=== PATIENT | female | born 1950 | race Caucasian/White ===

== ENCOUNTER 2018-04-02 09:37 | Outpatient (CLI) | payer MEDICARE, BC, SELFPAY ==
[2018-04-02 11:36] LABS: ALT 22 U/L (12-78); AST 13 U/L (15-37); Albumin 3.8 g/dL (3.4-5.0); Alkaline Phosphatase 81 U/L (46-116); Anion Gap 6.7 mmol/L (3-11); BUN 15 mg/dL (7-18); Bilirubin, Total 1.7 mg/dL (0.2-1.0); CO2 31.3 mmol/L (21.0-32.0); CREATININE 0.87 mg/dL (0.55-1.02); Calcium 9.1 mg/dL (8.5-10.1); Chloride 104 mmol/L (98-107); Glucose 85 mg/dL (70-100); Potassium 4.4 mmol/L (3.5-5.1); Sodium 142 mmol/L (136-145)
== END 2018-04-02 09:57 ==
PROVIDERS: PCP Family Medicine; Visit Provider Family Medicine
DX: E03.9 Hypothyroidism, unspecified (principal); E27.1 Primary adrenocortical insufficiency; M81.8 Other osteoporosis without current pathological fracture; T50.905A Adverse effect of unspecified drugs, medicaments and biological substances, initial encounter
CPT/HCPCS: 36415; 80053; 84443

== ENCOUNTER 2019-01-21 20:27 | Emergency (ER) | payer MEDICARE, BC, SELFPAY ==
--- NOTE | 2019-01-21 20:29 | ED.GENADUL_ITS ---
Discharge Plan Disposition Patient Disposition: HOME Condition: Good Discharge Details Chief Complaint: EyeProblem Clinical Impression: Conjunctival hemorrhage Primary Care Provider: Noa Avelar ED Provider: Jovan Ocampo Home Meds and New Rx's Prescriptions: No Action Solu-Cortef (PF) 100 mg/2 mL recon soln 100 mg IM PRN Qty: 1 RF: 4 fludrocortisone 0.1 mg tablet 0.1 mg PO DAILY Qty: 90 RF: 12 hydrocortisone 5 mg tablet 5 mg PO as directed RF: 0 TRAVATAN 0.004% EYE DROP 5 ML drops 1 drp Ophthalmic DAILY RF: 0 timolol maleate 15 ML drops 1 drp OU BID RF: 0 levothyroxine 88 mcg tablet 88 mcg PO DAILY Qty: 90 RF: 12 triamcinolone acetonide 0.1 % ointment 1 applic Topical BID PRNQty: 80 RF: 3 Discharge Instructions Additional Instructions: You have a sub-conjunctival hemorrhage. At this time there is no evidence of blood behind your eye, or a perforation of the globe of your eye. Please use erythromycin ointment for comfort. Please follow-up with your eye doctor tomorrow for reassessment. If you notice any worsening of your symptoms, or any new symptoms such as vision changes, vomiting, diarrhea, fever, chills, shortness of breath, chest pain, numbness, weakness, or fainting , please return immediately to the emergency department for reevaluation. Please follow up with your primary care provider as soon as possible for reassessment and reevaluation. As always, it was a pleasure participating in your medical care today. Referrals: Ramon Unger [OSTEOPATHIC DOCTOR] - Medical Decision Making This is a pleasant 68-year-old female with past medical history of Wolfgang's disease and normal pressure glaucoma who presents today for evaluation of trauma/abrasion to her left lateral eye. 20 minutes prior to arrival she caught the edge of her left eye on he bent edge of the newspaper. Did cause some mild bleeding. She came to the ER for further assessment. Bleeding resolved by the time she arrived. Notable conjunctival hemorrhage surrounding the eye. No evidence of hyphema. Normal vision, and ocular range of motion. Negative Ascencion sign. Notable corneal abrasion at the 3 o'clock position. No evidence of foreign body when lids were fully everted. Exam demonstrates normal visual acuity bilaterally. Signs and symptoms are consistent with subconjunctival hemorrhage and conjunctival abrasion. We will give her erythromycin ointment for ease of pain. Recommend close follow-up with the patient's chiller operator Dr Unger tomorrow. Discussed red flags which to return. Tetanus status is up-to-date. I have extensively reviewed the treatment plan and discharge instructions with the patient and their family. I have addressed all patient concerns at this time. The patient and family was made aware of what symptoms to monitor for that would warrant a return to the emergency department. Discussed the plan with the patient and family, they demonstrate verbal understanding and agreement with our assessment and plan at this time. HPI General Date/Time Provider Initiated Documentation: 01/21/19 20:29 . HPI Narrative: This is a 68-year-old female with a past medical history of [place]'s disease who presents today for evaluation of contusion to her left eye. Patient states that 20 to 30 minutes prior to arrival she hit her left eye on the lateral aspect with a folded newspaper. It did cause some mild bleeding. The bleeding is since stopped, but she does have sensation of irritation and notable redness all on the conjunctiva of the eye. She denies any significant vision changes. She denies any blood thinner use. She does have a history of normal pressure glaucoma and takes timolol and Travatan for her eye. She denies any other complaints. She denies any head pain, eyeball pain, neck pain. No other modifying factors peer Related Data Home Medications Medication Instructions Recorded Confirmed Travatan 0.004% Eye Drop 1 drp OPHTHALMIC DAILY drp 01/12/13 01/21/19 timolol maleate 1 drp OU BID script 07/14/13 01/21/19 fludrocortisone 0.1 mg tablet 0.1 mg PO DAILY #90 tab-cap 04/01/18 01/21/19 hydrocortisone sod succ (PF) 100 100 mg IM PRN #1 vial 04/01/18 01/21/19 mg/2 mL solution for injection levothyroxine 88 mcg tablet 88 mcg PO DAILY #90 tab-cap 04/22/18 01/21/19 hydrocortisone 5 mg tablet 5 mg PO as directed tab-cap 11/10/18 01/21/19 triamcinolone acetonide 0.1 % 1 applic TOPICAL BID PRN #80 gm 11/10/18 11/10/18 topical ointment Previous Rx's Medication Instructions Recorded fludrocortisone 0.1 mg tablet 0.1 mg PO DAILY #90 tab-cap 04/01/18 hydrocortisone sod succ (PF) 100 100 mg IM PRN #1 vial 04/01/18 mg/2 mL solution for injection levothyroxine 88 mcg tablet 88 mcg PO DAILY #90 tab-cap 04/22/18 Allergies Allergy/AdvReac Type Severity Reaction Status Date / Time methimazole Allergy Intermediate Hives Unverified 01/21/19 20:37 Sulfa (Sulfonamide Allergy Mild rash Unverified 01/21/19 20:37 Antibiotics) sulfamethoxazole Allergy Rash Unverified 01/21/19 20:37 [From Bactrim] trimethoprim [From Bactrim] Allergy Rash Unverified 01/21/19 20:37 lactose AdvReac GI upset Unverified 01/21/19 20:37 Review of Systems Review of Systems All systems reviewed & are unremarkable except as noted in HPI and below PFSH Medical History (Updated 11/10/18 @ 14:44 by Noa Avelar MD, [place]) 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 Brother Sleep apnea Essential hypertension Neoplasm Brother Sleep apnea Brother Essential hypertension Grandfather No problems noted. Grandfather Heart disease Grandmother Neoplasm Grandmother Myocardial infarction Social History (Updated 04/02/18 @ 09:28 by Claudia Gonzalez) Smoking/Tobacco Use Status: Never Alcohol Intake: current Alcohol Intake frequency: 0-2 drinks per day Alcohol type: wine Substance use type: does not use Household members: spouse Pets and animals: Yes Pets and animals: cat(s) What type of physical activity do you participate in: walking Duration: < 15 minutes/day Frequency: 1-2 times per week Lisa/Presybeterian: No preference Special lisa needs: No Do you feel safe at home: Yes Do you feel safe in your relationship?: Yes Exam Narrative Exam Narrative: 1.Const: Well-nourished, Well-developed, appearing stated age 2.Eyes: Left eye: Eye: EOMI, PERRL, Peripheral vision intact. No nystagmus. Fun doscopic exam shows normal optic discs and normal vasculature. No external signs of preseptal cellulitis, no redness around the eye, no proptosis. No hyphema, , no periorbital emphysema. Notable conjunctival hemorrhage originating from the lateral aspect of the left eye, extending towards the medial component. Notable abrasion seen on lateral aspect of the eye at the 3 o'clock position on the c onjunctiva. Fluorescein exam is positive for corneal abrasion with notable uptake in the lateral aspect at the 3 o'clock position, negative Ascencion sign. Visual acuity as documented in chart and is normal and equivalent bilaterally. Slit-lamp exam shows no evidence of cell and flare 3.ENT: Atraumatic external nose and ears. Moist MM. Neck: Symmetric, trachea midline, No thyromegaly. 4.CVS: +S1/S2, No murmurs or gallops. Peripheral pulses 2+ and equal in all extremities. Brisk capillary refill in all extremities. 5.RESP: Unlabored respiratory effort. 6.GI: Soft, Nontender/Nondistended, No hepatosplenomegaly. 7.MSK: Normocephalic/Atraumatic, Extremities w/o deformity or ttp No cyanosis or clubbing, Normal movement of all extremities 8.Skin: Warm, Dry. No rashes or lesions. 9.Neuro: position classifier II-XII grossly intact. Sensation grossly intact, no focal neurologic deficits. 10.Psych: (AAO) x3. Appropriate mood and affect
[2019-01-21 20:35] VITALS: BP 142/95; PULSE 88; RESP 18; TEMP 36.7; O2SAT 97
[2019-01-21] MEDS: Fluorescein STRIPS 100/BOX 1 MG (20:39)
[2019-01-21] MEDS: Tetracaine 0.5% 4 ML BTL (20:40)
[2019-01-21] MEDS: Erythromycin Ophth Oint 3.5 GM TUBE OS (20:54)
== END 2019-01-21 20:57 | disposition home or self-care (01) ==
PROVIDERS: Emergency Provider Student in an Organized Health Care Education/Training Program; PCP Family Medicine
DX: H11.32 Conjunctival hemorrhage, left eye (principal); W26.2XXA Contact with edge of stiff paper, initial encounter
CPT/HCPCS: 99283

== ENCOUNTER 2019-04-10 00:24 | Outpatient (CLI) | payer MEDICARE, BC, SELFPAY ==
[2019-04-10 10:03] LABS: TSH (W/Ref FT4) 0.38 uIU/mL (0.36-3.74)
[2019-04-13 10:55] LABS: Thyroglobulin Antibody <15 U/mL (<61)
== END 2019-04-10 00:44 ==
PROVIDERS: PCP Family Medicine; Visit Provider Family Medicine
DX: E03.9 Hypothyroidism, unspecified (principal); R19.7 Diarrhea, unspecified
CPT/HCPCS: 36415; 84443; 86800

== ENCOUNTER 2020-04-21 09:55 | Outpatient (CLI) | payer MEDICARE, BC, SELFPAY ==
[2020-04-21 13:12] LABS: ALT 22 U/L (14-59); AST 13 U/L (15-37); Albumin 3.9 g/dL (3.4-5.0); Alkaline Phosphatase 94 U/L (46-116); Anion Gap 3.2 mmol/L (3-11); BUN 15 mg/dL (7-18); Bilirubin, Total 1.1 mg/dL (0.2-1.0); CO2 31.8 mmol/L (21.0-32.0); CREATININE 0.77 mg/dL (0.55-1.02); Chloride 103 mmol/L (98-107); Glucose 97 mg/dL (74-106); Potassium 4.5 mmol/L (3.5-5.1); Sodium 138 mmol/L (136-145); TSH (W/Ref FT4) 0.56 uIU/mL (0.36-3.74); Total Protein 7.2 g/dL (6.4-8.2)
[2020-04-27 15:51] LABS: Thyroglobulin Antibody <15.0 U/mL (<or=60)
== END 2020-04-21 10:15 ==
PROVIDERS: PCP Family Medicine; Visit Provider Family Medicine
DX: C73 Malignant neoplasm of thyroid gland (principal); E03.9 Hypothyroidism, unspecified
CPT/HCPCS: 36415; 80053; 84443; 86800

== ENCOUNTER 2020-12-01 01:29 | Outpatient (CLI) | payer MEDICARE, BC, SELFPAY ==
--- NOTE | 2020-12-01 07:15 | DI.MAMMO_ITS ---
Exam(s) MAMMO SCREENING EXAM: MAMMO SCREENING CLINICAL HISTORY: screening.z12.39 TECHNIQUE: Mammograms were interpreted according to the usual protocol including computer analysis w Q-Bot CAD system, tomosynthesis and C-view imaging. COMPARISON: 2010 FINDINGS: The breasts are composed of heterogeneously dense fibroglandular densities, Breast Density category C . No suspicious masses or suspicious microcalcifications are seen. No skin thickening or abnormal axillary lymph nodes are seen. There has been no significant change from prior exams. IMPRESSION: BI-RADS Category 1, Negative mammogram. Yearly screening mammography is recommended. Breast Density Category C, heterogeneously Dense. The mammogram demonstrates the patient's breast tissue is dense. Dense breast tissue is very common a nd is not abnormal but dense breast tissue can make it harder to find cancer on a mammogram. Also, de nse breast tissue may increase breast cancer risk. This information about the result of the mammogram report was provided to the patient to raise their awareness. Use this report when you speak with the patient about their risks for breast cancer, which includes their family history. At that time, you may recommend additional screening tests (Ultrasound or MRI) as they might be useful based on their r isk. A negative radiographic report should not delay biopsy if a dominant or clinically suspicious mass is present. Up to ten percent of cancers are not identified on mammography. A negative report may reinforce clinical impression. Adenosis and dense breasts may obscure an underlying neoplasm. False positive reports average 6 to 10%.
== END 2020-12-01 01:49 ==
PROVIDERS: PCP Family Medicine; Visit Provider Family Medicine
DX: Z12.31 Encounter for screening mammogram for malignant neoplasm of breast (principal)
CPT/HCPCS: 77063; 77067

== ENCOUNTER 2021-07-17 03:34 | Outpatient (CLI) | payer MEDICARE, BC, SELFPAY ==
[2021-07-17 10:55] LABS: TSH (W/Ref FT4) 0.81 uIU/mL (0.36-3.74)
[2021-07-17 17:56] LABS: Thyroglobulin Antibody <15 U/mL (<=60)
== END 2021-07-17 03:35 | disposition home or self-care (01) ==
LOC: LBO 03:34
PROVIDERS: PCP Family Medicine; Visit Provider Family Medicine
DX: E03.9 Hypothyroidism, unspecified (principal); C73 Malignant neoplasm of thyroid gland
CPT/HCPCS: 36415; 84443; 86800

== ENCOUNTER 2022-01-04 20:59 | Outpatient (REF) | payer MEDICARE, BC, SELFPAY | END 2022-01-04 21:00 | disposition home or self-care (01) | LOC: LBN 20:59 | PROVIDERS: PCP Family Medicine; Visit Provider Family Medicine | DX: N39.0 Urinary tract infection, site not specified (principal) | CPT/HCPCS: 87086 ==

== ENCOUNTER 2022-08-09 02:03 | Outpatient (CLI) | payer MEDICARE, BC, SELFPAY ==
[2022-08-09 10:49] LABS: HCT 43.1 % (36.0-46.0); HGB 13.8 g/dL (11.2-15.7); MCH 30.8 pg (27.0-33.0); MCV 96 fL (80-95); MPV 10.2 fL (8.0-11.0); Platelet Count 208 10^3/uL (130-400); RBC 4.48 10^6/uL (3.93-5.22); RDW 12.6 % (11.7-14.6); RDW-SD 44.4 fL; WBC 7.47 10^3/uL (4.4-10.8)
[2022-08-09 11:06] LABS: Hemoglobin A1C 5.5 % (<5.7)
[2022-08-09 12:01] LABS: ALT 22 U/L (14-59); AST 17 U/L (15-37); Albumin 4.1 g/dL (3.4-5.0); Alkaline Phosphatase 86 U/L (46-116); Anion Gap 8.5 mmol/L (3-11); BUN 19 mg/dL (7-18); Bilirubin, Total 1.4 mg/dL (0.2-1.0); CO2 30.5 mmol/L (21.0-32.0); CREATININE 0.7 mg/dL (0.55-1.02); Calcium 9.5 mg/dL (8.5-10.1); Chloride 99 mmol/L (98-107); Estimated GFR 92.98 (mL/min/1.73m2); Glucose 111 mg/dL (74-106); Potassium 3.8 mmol/L (3.5-5.1); Sodium 138 mmol/L (136-145); Total Protein 7.9 g/dL (6.4-8.2); Vitamin B12 482 pg/mL (193-986)
[2022-08-09 17:59] LABS: Thyroglobulin Antibody <15 U/mL (<=60)
== END 2022-08-09 02:04 | disposition home or self-care (01) ==
PROVIDERS: PCP Family Medicine; Visit Provider Family Medicine
DX: E03.9 Hypothyroidism, unspecified (principal); E27.1 Primary adrenocortical insufficiency; E11.9 Type 2 diabetes mellitus without complications; G62.9 Polyneuropathy, unspecified; Z86.39 Personal history of other endocrine, nutritional and metabolic disease
CPT/HCPCS: 36415; 80053; 85027; 82607; 83036; 84443; 86800

== ENCOUNTER 2022-12-13 01:16 | Outpatient (CLI) | payer MEDICARE, BC, SELFPAY ==
--- NOTE | 2022-12-13 08:15 | DI.DEXA_ITS ---
Exam(s) XR DEXA BONE DENSITY W/WO MAK EXAM: XR DEXA BONE DENSITY W/WO MAK CLINICAL HISTORY: Addisons, DRUG INDUCED OSTEOPOROSIS, M81.8 TECHNIQUE: afterBOT Horizon C densitometer analysis of left hip, lumbar spine and left forearm. Lat eral survey image of the thoracic and lumbar spine. COMPARISON: No exams were available for comparison FINDINGS: Lateral view of the thoracic and lumbar spine shows no evidence of compression fractures. Bone mineral density measurements of the lumbar spine correspond to a total T-score of -0.1, in the normal range. Bone mineral density measurements of the left hip correspond to a total T-score of -2.2. The femora l neck T-score is -2.0, in the osteopenic range.. The left forearm bone mineral density measurements correspond to a T-score of the distal 3rd of -1.4 , in the osteopenic range. IMPRESSION: Osteopenia of the left hip and forearm. Normal bone density of the lumbar spine.
--- NOTE | 2022-12-13 08:15 | DI.MAMMO_ITS ---
Exam(s) MAMMO SCREENING EXAM: MAMMO SCREENING CLINICAL HISTORY: screening, Z12.39. TECHNIQUE: Bilateral full field digital CC and MLO mammographic images were obtained with 3D tomosyn thesis and utilizing computer aided detection (CAD). COMPARISON: 2015 - 2020 FINDINGS: Masses/Architectural Distortion: None seen. Microcalcifications: No suspicious pleomorphic-type are seen. Skin Thickening/Nipple Retraction: None. IMPRESSION: 1. No significant interval change with no specific features of malignancy noted. 2. Unless there is more urgent need, annual screening mammography is recommended, as per [place] [employer] guidelines. BI-RADS Category 1-negative Breast Density - Category D - extremely dense Breast Density Category D: The mammogram demonstrates the patient's breast tissue is dense. Dense la ast tissue is very common and is not abnormal but dense breast tissue can make it harder to find canc er on a mammogram. Also, dense breast tissue may increase their breast cancer risk. This information about the result of the mammogram report was provided to the patient to raise their awareness. Use th is report when you speak with the patient about their risks for breast cancer, which includes their f amily history. At that time, you may recommend for more screening tests (Ultrasound or MRI) as they m ight be useful based on their risk. A negative radiographic report should not delay biopsy if a dominant or clinically suspicious mass is present. Up to ten percent of cancers are not identified on mammography. A negative report may reinforce clinical impression. Adenosis and dense breasts may obscure an underlying neoplasm. False positive reports average 6 to 10%.
== END 2022-12-13 01:36 ==
LOC: DI 01:16
PROVIDERS: PCP Family Medicine; Visit Provider Family Medicine
DX: Z12.31 Encounter for screening mammogram for malignant neoplasm of breast (principal); M81.8 Other osteoporosis without current pathological fracture; T50.905A Adverse effect of unspecified drugs, medicaments and biological substances, initial encounter; M85.851 Other specified disorders of bone density and structure, right thigh
CPT/HCPCS: 77063; 77067; 77080

== ENCOUNTER 2023-08-13 05:17 | Outpatient (CLI) | payer MEDICARE, BC, SELFPAY ==
[2023-08-13 12:38] LABS: ALT 21 U/L (14-59); AST 17 U/L (15-37); Alkaline Phosphatase 95 U/L (46-116); Anion Gap 10.2 mmol/L (3-11); BUN 20 mg/dL (7-18); Bilirubin, Total 1.3 mg/dL (0.2-1.0); CO2 29.8 mmol/L (21.0-32.0); CREATININE 0.9 mg/dL (0.55-1.02); Calcium 9.8 mg/dL (8.5-10.1); Chloride 101 mmol/L (98-107); Estimated GFR 68.35 (mL/min/1.73m2); Glucose 98 mg/dL (74-106); Potassium 3.6 mmol/L (3.5-5.1); Sodium 141 mmol/L (136-145); TSH (W/Ref FT4) 2.88 uIU/mL (0.36-3.74); Total Protein 8.1 g/dL (6.4-8.2)
[2023-08-13 17:57] LABS: Thyroglobulin Antibody <15 U/mL (<=60)
== END 2023-08-13 05:18 | disposition home or self-care (01) ==
LOC: LOS 05:17
PROVIDERS: PCP Family Medicine; Visit Provider Family Medicine
DX: C73 Malignant neoplasm of thyroid gland (principal); E03.9 Hypothyroidism, unspecified; G62.9 Polyneuropathy, unspecified
CPT/HCPCS: 36415; 80053; 84443; 86800

== ENCOUNTER → 2023-11-21 10:43 | Outpatient (BNVA) | payer MEDICARE, BC, SELFPAY | PROVIDERS: PCP Family Medicine; Referring Provider Family Medicine; Visit Provider Physical Therapy Assistant | DX: Z12.11 Encounter for screening for malignant neoplasm of colon (principal) ==

== ENCOUNTER 2023-12-02 09:37 | Day surgery (SDC) | payer MEDICARE, BC, SELFPAY ==
--- NOTE | 2023-12-01 09:39 | PDOC.DSDIS_ITS ---
Date of service: 12/02/23 Time of Service: 12:12 Discharge Plan Disposition Patient Disposition: Home Condition: Good Discharge Details Reason For Visit: screening colonoscopy Attending Provider: Maximo Levi Primary Care Provider: Noa Avelar Home Meds and New Rx's Prescriptions: Continued Solu-Cortef 100 mg recon soln 100 mg IM DAILY PRN hydrocortisone acetate 25 mg suppository 25 mg OR BID PRN albuterol sulfate 90 mcg/actuation HFA aerosol inhaler 2 puff inhalation TID PRN (Reason: bronchospasm) Qty: 13.4 12RF Hold Instructions: Changed by Provider TRAVATAN 0.004% EYE DROP 5 ML drops 1 drp Ophthalmic DAILY hydrocortisone 5 mg tablet See Rx Instructions PO as directed Qty: 450 5RF Rx Instructions: 3tabs in am; 1 tab noon and 1 tab pm PO as directed; [place] MAnufaturing - no substitutions fludrocortisone 0.1 mg tablet 0.1 mg PO DAILY Qty: 90 12RF levothyroxine 88 mcg tablet 88 mcg PO DAILY Qty: 90 12RF Solu-Cortef Act-O-Vial (PF) 100 mg/2 mL recon soln 100 mg IM DAILY MDD 2-4ml PRN (Reason: adrenal insufficiency) Qty: 1 4RF Rx Instructions: use when sick Discontinued bisacodyl [Dulcolax (bisacodyl)] 5 mg tablet,delayed release (DR/EC) 5 mg PO ONCE Qty: 4 0RF Rx Instructions: Take per colonoscopy instructions provided by ordering providers office polyethylene glycol 3350 17 gram/dose powder 17 g PO ONCE Qty: 238 0RF Rx Instructions: Take per colonoscopy instructions provided by ordering providers office Discharge Instructions Instructions: Diverticulosis (GEN), Colorectal Polyps (GEN), Diverticulosis Diet (GEN) Additional Instructions: Kathleen, we were able to complete your colonoscopy today without any difficulty. I did find 2 polyps, which I removed. This will be sent off for testing, and once we know the nature of the polyps, my office will be in touch with any other recommendations. Incidentally, you also have some diverticulosis and internal hemorrhoids. Diverticula are little weak spots in the muscular part of the colon wall that typically accumulate as we get older. Hemorrhoids are normal veins that surrounds her anus. I have attached some general information here about colorectal polyps, as well as diverticulosis. If you have any questions in the meantime, please do not hesitate to call or ask at any point. 1. If tolerated, consume a soft, low fiber diet for 1-2 days. 2[address] Do not drive, drink alcohol, operate machinery, make critical decisions, or d o activities that require coordination or balance for 24 hours. 3. Because air was put into your colon during the procedure, expelling air from your rectum (passing gas or farting) is normal. 4. You may not have a bowel movement for 1-3 days because of the colonoscopy prep. This is normal. 5. Go directly to the emergency room if you notice any of the following: Develop chills (warm to touch), or if you have a thermometer and your temperature is above 101 Difficulty breathing or difficultly swallowing Persistent vomiting Severe abdominal pain, other than gas cramps Severe chest pain Black, tarry stools Any bleeding ? exceeding one tablespoon 6. Call your physician if the site where your intravenous was started becomes red, swollen, painful, and warm to touch. 7. Your physician has reviewed your pre-procedure medications. Please continue to take those medications as previously ordered. You will be given specific information/education regarding any changes to your medications before leaving. Activity:: Activity as Tolerated Diet:: As Tolerated Discharge Orders Discharge Orders: Discharge Order (Routine); Ordered 12/01/23 Ordered By: Maximo Levi DS: Diagnosis Discharge Diagnosis (1) Encounter for screening colonoscopy: Status: Acute Asessment and Plan: Follow-up on polypectomy results
--- NOTE | 2023-12-01 09:41 | W.COLOREPORT ---
Date of service: 12/02/23 Time of Service: 12:14 Colonoscopy Report Date of procedure: 12/02/23 Pre-op diagnosis general: screening colonoscopy Post-op diagnosis procedure note: other (Colon polyps, internal hemorrhoids, diverticulosis) Procedure: colonoscopy with polypectomy Surgeon: Maximo Levi Anesthesia Type: General:No Airway Estimated blood loss (mL): 5 Pathology: other (0.5 cm polyp at 25 cm from the anus, 0.25 cm polyp at 20 cm from the anus) Complications: None Disposition: same day Indications: Kathleen is a 73 year old woman who rewcently had a positive cologuard test. She needs a follow up screening colonoscopy Prep: Miralax/Dulcolax Procedure Start Time: 11:36 Procedure End Time: 12:01 Retraction Time: 16 Findings: Grade 1 internal hemorrhoids, sigmoid diverticulosis, 0.5 cm polyp at 25 cm from the anus, 0.25 cm polyp at 20 cm from the anus Procedure Description: After the induction of anesthesia, and with the patient in left lateral decubitus position, I began by performing an external anorectal exam.? Perineum and skin were normal, as was the anal verge.? There was no evidence of external hemorrhoids.? Next, I performed a digital rectal exam.? This was normal. next, I advanced a colonoscope into the rectal vault.? I performed retroflexion.? There are grade 1 internal hemorrhoids.? Using insufflation, I then advanced the colonoscope beyond the rectal folds and into the sigmoid colon before advancing towards the cecum.? There is sigmoid diverticulosis.? The scope was noted to be in the cecum by identification of the ileocecal valve and appendiceal orifice.? I then began withdrawing the colonoscope using repeated irrigation as necessary for full evaluation of the colonic mucosa. Around 25 cm from the anal verge was a 0.5 cm pedunculated polyp. This was removed with cold forceps with minimal bleeding. Similarly, around 20 cm from the anus was a 0.25 cm polyp. This was more flat. This was also removed with cold forceps. Once the scope was withdrawn to the level of the rectum, great care was taken to examine portions of the rectal folds.? Finally, the scope was withdrawn and the patient was brought to the same-day surgery recovery unit as the anesthetic wore off. ?The findings and instructions were shared with the patient prior to discharge. [place] Bowel Prep [place] Bowel Prep Right Colon: 3 Left Colon: 3 Transverse Colon: 3 Total Score: 9
[2023-12-02 10:00] VITALS: BP 115/75; PULSE 89; RESP 18; TEMP 36.2; O2SAT 99
[2023-12-02] MEDS: Lactated Ringers 1,000 ML 80 ML IV (10:18)
--- NOTE | 2023-12-02 10:26 | ANES.PREOP_ITS ---
General Info Date of Service Date Performed: 12/02/23 Height: 5 ft 3 in Weight: 53.5 kg Body Mass Index (BMI): 20.9 Surgical Procedure: Operation Date: 12/02/23 12:05 Proposed Procedure Side Surgeon gayla Levi MD Meds Allergies and Home Medications Allergies Allergy/AdvReac Type Severity Reaction Status Date / Time methimazole Allergy Intermediate Hives Verified 12/02/23 09:58 Sulfa (Sulfonamide Allergy Mild rash Verified 12/02/23 09:58 Antibiotics) sulfamethoxazole Allergy Rash Verified 12/02/23 09:58 [From Bactrim] trimethoprim [From Bactrim] Allergy Rash Verified 12/02/23 09:58 lactose AdvReac GI upset Verified 12/02/23 09:58 Home Medication Medication Instructions Recorded Travatan 0.004% Eye Drop 1 drp ophthalmic (eye) DAILY 01/12/13 hydrocortisone 5 mg tablet See Rx Instructions PO as directed 05/17/23 #450 tab-caps fludrocortisone 0.1 mg tablet 0.1 mg PO DAILY #90 tab-caps 08/13/23 levothyroxine 88 mcg tablet 88 mcg PO DAILY #90 tab-caps 08/13/23 albuterol sulfate 90 mcg/actuation 2 puff inhalation TID PRN 08/22/23 aerosol inhaler bronchospasm #13.4 grams hydrocortisone acetate 25 mg 25 mg MS BID PRN 08/22/23 rectal suppository hydrocortisone sod succinate 100 100 mg IM DAILY PRN 08/22/23 mg solution for injection (Solu-Cortef) hydrocortisone sod succ (PF) 100 100 mg (2 mL) IM DAILY PRN adrenal 09/25/23 mg/2 mL solution for injection insufficiency #1 vial (Solu-Cortef Act-O-Vial (PF)) Current Visit Medications: Current Medications Generic Name Dose Route Start Last Admin Trade Name Freq PRN Reason Stop Dose Admin Ringer's Solution 1,000 mls @ 80 mls/hr 12/02/23 06:00 12/02/23 10:18 IV 12/02/23 23:59 80 mls/hr INFUSION MARTIN Administration IV Miscellaneous Supplies 1 each 12/02/23 06:00 Iv Access IV 12/02/23 23:59 DIRECTED MARTIN Ondansetron HCl 4 mg 12/01/23 09:42 Ondansetron 4 Mg/2 Ml Vial IVP 12/31/23 09:41 Q4H PRN PRN Nausea / Vomiting Sodium Chloride 0 ml 12/02/23 06:00 Normal Saline Flush 10 Ml Syr IV 12/02/23 23:59 PRN PRN Sodium Chloride 0 ml 12/02/23 06:00 Normal Saline 10 Ml Vial IJ 12/02/23 23:59 DIRECTED PRN Sterile Water 0 ml 12/02/23 06:00 Water,Injection,Sterile 10 Ml Vial IJ 12/02/23 23:59 DIRECTED PRN PFSH Active Problems Active Problems: Problem Status Onset Code Encounter for screening colonoscopy Z12.11 Reactive airway disease J45.909 Osteopenia M85.80 Positive colorectal cancer screening using Cologuard test R19.5 Hemorrhoids K64.9 Polyneuropathy G62.9 Advance care planning Z71.89 Primary malignant neoplasm of thyroid gland C73 Annual physical exam 01/24/15 Z00.00 Hypothyroidism E03.9 Vitreous detachment H43.819 Glaucoma H40.9 Addisons disease 09/09/12 E27.1 Medical History Medical History Cough Skin lesion Blood in stool Cataract Chronic bilateral thoracic back pain (08/23/16) Cataracts, bilateral (01/24/15) Surgical History Surgical History S/P thyroidectomy 06/24/94 Thyroid (~1994) COMPLETE THYROIDECTOMY; THYROID CANCER Tobacco Smoking/Tobacco Use Status: Never Passive smoking exposure: Yes Second hand exposure: No Alcohol Alcohol Intake: current Alcohol intake frequency: 0-2 drinks per day Alcohol type: beer and wine Substance Use Substance use: Never Substance use type: does not use Vital Signs and Lab Results Vital Signs Most Recent Vital Signs in EMR: Most Recent Vital Signs Temp Pulse Resp BP Pulse Ox 36.2 C L 89 18 115/75 99 12/02/23 10:00 12/02/23 10:00 12/02/23 10:00 12/02/23 10:00 12/02/23 10:00 Lab Results Blood Type / Crossmatch: 2 No Data to Display Complete Blood Count: 2 No Data to Display Complete Metabolic Panel: 2 No Data to Display Liver Function Panel: 2 No Data to Display Coagulation Panel: 2 No Data to Display Cardiac Panel: 2 No Data to Display Arterial Blood Gas: 2 No Data to Display Venous Blood Gas: 2 No Data to Display Pancreas Panel: 2 No Data to Display Thyroid Panel: 2 No Data to Display Infectious Disease: 2 No Data to Display Blood Cultures: 2 No Data to Display Toxicology Panel: 2 No Data to Display Anesthesia Assessment and Plan Anesthesia History Personal History: No History of Anesthesia Complications Family History: No Family History of Anesthesia Complications Exercise Tolerance Exercise Tolerance: Metabolic Equivalents>4 Pertinent Negatives Pertinent Negatives: No Symptoms of GERD, No Major Pulmonary Symptoms or Complaints and No History of CVA/TIA Cardiac & Pulmonary Exam Cardiac Exam: Normal S1/S2 Heart Sounds Pulmonary Exam: Clear Bilateral Breath Sounds Implantable Cardiac Device Does patient have a Pacemaker or an ICD?: No Airway Exam Known Difficult Airway: No Mallampati Class: 3 Mouth Opening: Narrow (< 3cm) Thyromental Distance: Less than 3 cm Neck Range of Motion: Full ROM Neck Circumference: Normal Teeth Condition: Generalized Poor Dentition and Loose or Chipped (posterior molars) Tooth Numberin 1. Some cracked molars 2. Some cracked molars ASA Classification ASA Score: ASA 3 Emergency Case?: No NPO Status NPO Status: NPO Clears >2 hours, Solids >8 hours Anesthesia Plan Resuscitation Status: Full Code Anesthesia Technique: General Anesthesia Airway Planned: Natural Airway Monitors Used: Standard Monitors
[2023-12-02 10:29] VITALS: BMI 20.9
--- NOTE | 2023-12-02 11:55 | BOWEL_PTH ---
PATIENT: Kathleen Whitehead LOC: [facility] U#:[id number] AGE/SX: 73/F ROOM: RE12/02/[address]: Maximo Levi MD : 1950 BED: DIS: 12/02/2023 SPEC #: [id number] RECD: 12/02/23 13:03 STATUS: MAIN [facility] #: [id number] ЕЛЕНА: 12/02/23 11:[address]: Maximo Levi DEPT: Surgical Specimen RECD BY: Martha James ENTERED: 12/02/23 13:04 SP TYPE: Bowel OTHR DR: Noa Avelar MD, DC Tissues: 1 - BIOPSY BOWEL 2 - BIOPSY BOWEL Procedures: GROSS AND MICRO LEVEL 4 Comments: [id number]
[2023-12-02 12:05] VITALS: BP 102/65; PULSE 95; RESP 20; TEMP 36.5; O2SAT 97
--- NOTE | 2023-12-02 12:20 | W.ANESPOSTOP ---
Postoperative Evaluation Date, Time and Location Date Performed: 12/02/23 Time Performed: 12:20 Patient Location: Day Surgery Unit Vital Signs Most Recent Imported Vital Signs: Most Recent Vital Signs Temp Pulse Resp BP Pulse Ox 36.5 C 95 H 20 102/65 97 12/02/23 12:05 12/02/23 12:05 12/02/23 12:05 12/02/23 12:05 12/02/23 12:05 Pain Score Most Recent Pain Score: Most Recent Pain Score Pain Level 0 12/02/23 12:05 Assessment Mental Status: Awake (Alert & Oriented to Patient Baseline) Airway and Respiratory Function: Patent airway with normal (patient baseline) respiratory exam Cardiovascular Function: Hemodynamically Stable Hydration Status: Adequately Hydrated Nausea & Vomiting: No Nausea or Vomiting Pain: Pt. Denies Any Pain Peripheral Nerve Block: Patient did not receive a nerve block
[2023-12-02 12:35] VITALS: BP 111/71; PULSE 77; RESP 20; TEMP 36.6; O2SAT 99
== END 2023-12-02 12:50 | disposition home or self-care (01) ==
LOC: SUR 09:37
PROVIDERS: PCP Family Medicine; Visit Provider Surgery
PROC: 0DJD8ZZ Inspection of Lower Intestinal Tract, Via Natural or Artificial Opening Endoscopic (ICD-10-PCS; CPT 45378; principal; 2023-12-02 12:00)
DX: Z12.11 Encounter for screening for malignant neoplasm of colon (principal); K63.5 Polyp of colon; K57.30 Diverticulosis of large intestine without perforation or abscess without bleeding; K64.0 First degree hemorrhoids; R19.5 Other fecal abnormalities
CPT/HCPCS: 45380; 88305; J2704

== ENCOUNTER → 2023-12-17 01:48 | Outpatient (CLI) | payer MEDICARE, BC, SELFPAY ==
--- NOTE | 2023-12-17 11:57 | DI.MAMMO_ITS ---
Exam(s) MAMMO SCREENING EXAM: MAMMO SCREENING CLINICAL HISTORY: screening,Z12.39 TECHNIQUE: Mammograms were interpreted according to the usual protocol including computer analysis w [employer] CAD system, tomosynthesis and C-view imaging. COMPARISON: 2015 through 2022 FINDINGS: The breasts are composed of heterogeneously dense fibroglandular densities, Breast Density category C . No suspicious masses or suspicious microcalcifications are seen. No skin thickening or abnormal axillary lymph nodes are seen. There has been no significant change from prior exams. IMPRESSION: BI-RADS Category 1, Negative mammogram. Yearly screening mammography is recommended. Breast Density Category C, heterogeneously Dense. The mammogram demonstrates the patient's breast tissue is dense. Dense breast tissue is very common a nd is not abnormal but dense breast tissue can make it harder to find cancer on a mammogram. Also, de nse breast tissue may increase breast cancer risk. This information about the result of the mammogram report was provided to the patient to raise their awareness. Use this report when you speak with the patient about their risks for breast cancer, which includes their family history. At that time, you may recommend additional screening tests (Ultrasound or MRI) as they might be useful based on their r isk. A negative radiographic report should not delay biopsy if a dominant or clinically suspicious mass is present. Up to ten percent of cancers are not identified on mammography. A negative report may reinforce clinical impression. Adenosis and dense breasts may obscure an underlying neoplasm. False positive reports average 6 to 10%.
== END ==
PROVIDERS: PCP Family Medicine; Visit Provider Family Medicine
DX: Z12.31 Encounter for screening mammogram for malignant neoplasm of breast (principal); R92.333 Mammographic heterogeneous density, bilateral breasts
CPT/HCPCS: 77063; 77067

== ENCOUNTER 2024-08-10 18:01 | Emergency (ER) | payer MEDICARE, BC, SELFPAY ==
[2024-08-10] VITALS (14 sets, daily range): BP systolic 114–125; BP diastolic 65–77; PULSE 86–103; RESP 14–21; TEMP 36.4–36.7; O2SAT 95–100
--- NOTE | 2024-08-10 18:16 | W.ED.GENAD ---
Discharge Plan Disposition Patient Disposition: Home Condition: Stable Discharge Details Clinical Impression: Addisons disease, Influenza A Primary Care Provider: Noa Avelar ED Provider: Toño Mathur [place] Meds and New Rx's Prescriptions: New oseltamivir 75 mg capsule 75 mg PO Q12H 5 Days Qty: 9 0RF ondansetron 4 mg tablet,disintegrating 4 mg PO Q8H PRN (Reason: nausea and vomiting) Qty: 30 0RF Continued hydrocortisone sod succinate [Solu-Cortef] 100 mg recon soln 100 mg IM DAILY PRN hydrocortisone acetate 25 mg suppository 25 mg AL BID PRN albuterol sulfate 90 mcg/actuation HFA aerosol inhaler 2 puff inhalation TID PRN (Reason: bronchospasm) Qty: 13.4 12RF TRAVATAN 0.004% EYE DROP 5 ML drops 1 drp Ophthalmic DAILY fludrocortisone 0.1 mg tablet 0.1 mg PO DAILY Qty: 90 12RF levothyroxine 88 mcg tablet 88 mcg PO DAILY Qty: 90 12RF Solu-Cortef Act-O-Vial (PF) 100 mg/2 mL recon soln 100 mg IM DAILY MDD 2-4ml PRN (Reason: adrenal insufficiency) Qty: 1 4RF Rx Instructions: use when sick hydrocortisone 5 mg tablet See Rx Instructions PO as directed Qty: 450 5RF Rx Instructions: 3tabs in am; 1 tab noon and 1 tab pm PO as directed; [place] MAnufaturing - no substitutions Discharge Instructions Additional Instructions: You are positive for the flu. There is no significant electrolyte abnormality. Take the oseltamivir as prescribed. If you are not improving this weekend recommend following up with your primary care provider. If you feel a lot more ill or have symptoms such as persistent vomiting or difficulty breathing return to the emergency department for reevaluation HPI General Mode of arrival: ambulatory. Date/Time Provider Initiated Documentation: 08/10/24 18:02. Limitations to Documentation: no limitations. Information obtained by: patient. History of Present Illness 74 year old F presents to the emergency department with the chief complaint of body aches, chills, nausea, fatigue, described as moderate, Patient started experiencing this day(s) (2) and it has been constant. No relieving factors improve symptom(s), No exacerbating factors reported . Patient notes denies chest pain and shortness of breath. Patient did receive the following treatments prior to arrival, none Related Data Home Medications ?Medication ?Instructions ?Recorded ?Confirmed Travatan 0.004% Eye Drop 1 drp ophthalmic (eye) DAILY 01/12/13 08/10/24 fludrocortisone 0.1 mg tablet 0.1 mg PO DAILY #90 tab-caps 08/13/23 08/10/24 levothyroxine 88 mcg tablet 88 mcg PO DAILY #90 tab-caps 08/13/23 08/10/24 albuterol sulfate 90 mcg/actuation 2 puff inhalation TID PRN 08/22/23 08/10/24 aerosol inhaler bronchospasm #13.4 grams hydrocortisone acetate 25 mg 25 mg AL BID PRN 08/22/23 08/10/24 rectal suppository hydrocortisone sod succinate 100 100 mg IM DAILY PRN 08/22/23 08/10/24 mg solution for injection (Solu-Cortef) hydrocortisone sod succ (PF) 100 100 mg (2 mL) IM DAILY PRN adrenal 09/25/23 08/10/24 mg/2 mL solution for injection insufficiency #1 vial (Solu-Cortef Act-O-Vial (PF)) hydrocortisone 5 mg tablet See Rx Instructions PO as directed 07/28/24 08/10/24 #450 tab-caps ondansetron 4 mg disintegrating 4 mg PO Q8H PRN nausea and 08/10/24 tablet vomiting #30 tabs oseltamivir 75 mg capsule 75 mg PO Q12H 5 days #9 caps 08/10/24 Previous Rx's ?Medication ?Instructions ?Recorded fludrocortisone 0.1 mg tablet 0.1 mg PO DAILY #90 tab-caps 08/13/23 levothyroxine 88 mcg tablet 88 mcg PO DAILY #90 tab-caps 08/13/23 albuterol sulfate 90 mcg/actuation 2 puff inhalation TID PRN 08/22/23 aerosol inhaler bronchospasm #13.4 grams hydrocortisone sod succ (PF) 100 100 mg (2 mL) IM DAILY PRN adrenal 09/25/23 mg/2 mL solution for injection insufficiency #1 vial (Solu-Cortef Act-O-Vial (PF)) hydrocortisone 5 mg tablet See Rx Instructions PO as directed 07/28/24 #450 tab-caps ondansetron 4 mg disintegrating 4 mg PO Q8H PRN nausea and 08/10/24 tablet vomiting #30 tabs oseltamivir 75 mg capsule 75 mg PO Q12H 5 days #9 caps 08/10/24 Allergies Allergy/AdvReac Type Severity Reaction Status Date / Time methimazole Allergy Intermediate Hives Verified 08/10/24 18:07 Sulfa (Sulfonamide Allergy Mild rash Verified 08/10/24 18:07 Antibiotics) sulfamethoxazole (From Allergy Rash Verified 08/10/24 18:07 Bactrim) trimethoprim (From Bactrim) Allergy Rash Verified 08/10/24 18:07 lactose AdvReac GI upset Verified 08/10/24 18:07 General Stated Complaint: RespSymp SILAS: 4 Review of Systems All systems reviewed & are unremarkable except as noted in HPI and below Constitutional Constitutional: Reports chills, Denies fever(s) and Reports weakness Cardiovascular Cardiovascular: Denies chest pain and Denies dyspnea Respiratory Respiratory: Reports cough and Denies dyspnea Gastrointestinal Gastrointestinal: Denies abdominal pain, Denies nausea and Denies vomiting Integumentary/Breasts Skin/Breast: Denies rash Neurologic Neurologic: Reports weakness Exam Const General: no acute distress Orientation: alert [facility] Head: normal to inspection Ears: external ears normal General nose exam: external nose normal Mouth: moist mucous membranes Eyes General: appearance normal, both eyes and all related structures Neck Neck: normal visual inspection Resp Effort & Inspection: normal respiratory effort and able to speak in complete sentences Auscultation: clear to auscultation bilaterally Cardio Rate: regular rate GI Palpation: soft and nontender Skin General skin exam: no rashes or lesions noted Neuro General: patient alert and patient oriented x3 Extrem General: normal to inspection Psych Mental Status: mental status grossly normal Course Vital Signs Vital signs: Vital Signs Temperature 36.4 C L 08/10/24 18:04 Pulse 103 H 08/10/24 18:04 Respiratory Rate 18 08/10/24 18:04 Blood Pressure 114/77 08/10/24 18:04 Pulse Oximetry 95 08/10/24 18:04 Temperature 36.4 C L 08/10/24 18:04 Temperature Source Oral 08/10/24 18:04 Pulse 103 H 08/10/24 18:04 Respiratory Rate 18 08/10/24 18:04 Blood Pressure 114/77 08/10/24 18:04 Blood Pressure Position Sitting 08/10/24 18:04 Pulse Oximetry 95 08/10/24 18:04 Oxygen Delivery Method Room Air 08/10/24 18:04 Oxygen Flow Rate 0 08/10/24 18:04 Pain Level 5 08/10/24 18:04 Medical Decision Making 74-year-old female with a history of [place]'s disease on hydrocortisone normally, comes in with 2 days of bodyaches, chills, cough and general malaise. She denies any chest pain, high fevers, recent travel, vomiting though she has had nausea. She denies any abdominal pain. She is stable on arrival, she has clear lung sounds, no JVD, soft nontender abdomen. No leg swelling. Given her body aches and chills I will send a Fluvid, will also check a CBC and CMP and a procalcitonin. Will also obtain a chest x-ray given her cough. I suspect she has the flu, if she has evidence of electrode abnormalities will consider giving IV hydrocortisone. Patient and requesting hydrocortisone lotion follows reasonable labs are pending. She declined to have a Fluvid but was willing to have a [id number] flu test which was positive for flu A so Tamiflu was ordered. She has no acidosis and electrolytes are benign. I doubt severe adrenal crisis. X-ray unremarkable. Her procalcitonin is in the indeterminate range but given she has no leukocytosis and no pneumonia on x-ray I do not feel antibiotics are indicated. She is stable for discharge, advised to follow-up with her PCP if not improving and return precautions given Differential Diagnosis Differential Diagnosis: flu, COVID, pneumonia Medical Records Medical records reviewed: Yes I reviewed the patient's medical records. Lab Data Lab results reviewed: Yes I reviewed the patient's lab results. Quality:[facility] Related Social Needs: No Data to Display PFSH All Active Problems (Updated 08/10/24 @ 20:42 by Toño Mathur MD) Influenza A (Acute) Encounter for screening colonoscopy (Acute) Reactive airway disease (Acute) Osteopenia (Acute) Positive colorectal cancer screening using Cologuard test (Acute) Hemorrhoids (Acute) Polyneuropathy (Acute) Advance care planning (Acute) Primary malignant neoplasm of thyroid gland (Acute) S/P thyroidectomy hypothyroidism Annual physical exam (Acute 01/24/15) Hypothyroidism (Chronic) Vitreous detachment (Chronic) Glaucoma (Chronic) 07/18/12 OPTICAL EXPRESSIONS; NORMAL TENSION GLAUCOMA 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) Medical History (Updated 08/10/24 @ 20:42 by Toño Mathur MD) Hyperplastic colon polyp (~11/2023) Cough Skin lesion Blood in stool Cataract Chronic bilateral thoracic back pain (08/23/16) Cataracts, bilateral (01/24/15) Surgical History (Updated 12/03/23 @ 14:33 by Teagan Pittman) History of colonoscopy (~11/2023) S/P thyroidectomy 06/24/94 Thyroid (~1994) COMPLETE THYROIDECTOMY; THYROID CANCER Family History (Updated 04/08/19 @ 10:39 by Kulwnat Bran) Mother , age 83 Heart disease CHF Multiple sclerosis Father , age 65 Lymphoma Sister Depression Brother Sleep apnea Essential hypertension Lymphoma Brother Sleep apnea Brother Essential hypertension Paternal Grandfather , age 65 Heart disease Maternal Grandmother , age 83 Ovarian cancer Paternal Grandmother , age 69 Myocardial infarction Social History Smoking/Tobacco Use Status: Never Second Hand Exposure: No Smoking risk assessment performed?: Yes Alcohol Intake: current Alcohol Intake frequency: 0-2 drinks per day Alcohol type: beer and wine Drug use: Never Substance use type: does not use Caregiver/Support person: No Household members: spouse Housing: house Communication Needs: None Do you need help understanding health information?: Never Pets and animals: Yes Pets and animals: cat(s) Sexually active: No Do you think of yourself as: straight/heterosexual Current gender identity: female What is your relationship status?: How often do you talk on the phone with friends or family?: three or more times per week How often do you get together with friends or relatives?: three or more times per week How often do you attend yarsanism or scientologist services?: decline to answer Do you belong to any clubs or organized social groups?: no Panel score (0-1 are the most socially isolated patients): 2 What type of physical activity do you participate in: none and decline to answer Duration: decline to answer Frequency: does not exercise Lisa/Confucianism: None Special lisa needs: No Seatbelt use: always 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
[2024-08-10] MEDS: Ondansetron 4 MG/2 ML VIAL IVP (19:09)
[2024-08-10] MEDS: Hydrocortisone SOD SUC. 100 MG VIAL IVP (19:17)
[2024-08-10 19:19] LABS: BE (Venous) -2 mmol/L (-2-3); HCO3 (Venous) 23 mmol/L (23-28); O2 Sat (Venous) 84 %; TCO2 (Venous) 21 mmol/L (24-29); pCO2 (Venous) 37 mmHg (41-51); pH (Venous) 7.41 (7.31-7.41); pO2 (Venous) 46 mmHg
[2024-08-10 19:20] LABS: Abs Immature Grans 0.01 10^3/uL (0.0-0.06); Absolute Basophil Count 0.02 10^3/uL (0.0-0.2); Absolute Lymphocyte Count 0.92 10^3/uL (1.2-3.4); Absolute Monocyte Count 0.64 10^3/uL (0.1-0.8); Absolute Neutrophil Count 5.28 10^3/uL (1.2-6.7); Basophils % 0.3 %; HCT 42.7 % (36.0-46.0); HGB 14.4 g/dL (11.2-15.7); Immature Grans % 0.1 %; Lymphocytes % 13.4 %; MCHC 33.7 % (32.0-36.0); MCV 92 fL (80-95); MPV 10.4 fL (8.0-11.0); Monocytes % 9.3 %; Neutrophils % 76.9 %; RBC 4.65 10^6/uL (3.93-5.22); RDW 12.5 % (11.7-14.6); RDW-SD 42.3 fL; WBC 6.87 10^3/uL (4.4-10.8)
[2024-08-10 19:32] LABS: Diff Comment PLT Morph Reviewed; Platelet Count 94 10^3/uL (130-400); RBC Morphology Normal
--- NOTE | 2024-08-10 19:39 | DI.RAD_ITS ---
Exam(s) XR CHEST 2V PA LATERAL EXAM: XR CHEST 2V PA LATERAL CLINICAL HISTORY: cough TECHNIQUE: 2D digital imaging was performed of the chest. Two images were obtained. PA and lateral views were obtained. COMPARISON: No exams were available for comparison FINDINGS: MEDIASTINUM: Normal. HEART: Normal. PULMONARY VASCULATURE: Normal. LUNGS: No focal consolidation is seen. PLEURAL SPACE: No pleural effusion or pneumothorax. BONE:Within normal limits for the patient's age. OTHER FINDINGS:Normal. IMPRESSION: No acute pulmonary findings. DATA REPOSITORY: RADIATION DOSE DELIVERED:
[2024-08-10 19:51] LABS: ALT 26 U/L (14-59); AST 34 U/L (15-37); Albumin 3.8 g/dL (3.4-5.0); Alkaline Phosphatase 81 U/L (46-116); Anion Gap 10.9 mmol/L (3-11); BUN 31 mg/dL (7-18); Bilirubin, Total 2.34 mg/dL (0.2-1.0); CO2 25.1 mmol/L (21.0-32.0); CREATININE 0.7 mg/dL (0.55-1.02); Calcium 9.1 mg/dL (8.5-10.1); Chloride 98 mmol/L (98-107); Estimated GFR 91.83 (mL/min/1.73m2); Glucose 82 mg/dL (74-106); Magnesium 2.1 mg/dL (1.8-2.4); Potassium 4.4 mmol/L (3.5-5.1); Sodium 134 mmol/L (136-145)
[2024-08-10] MEDS: Normal Saline 1,000 ML 1000 ML IV (20:04)
[2024-08-10] MEDS: Oseltamivir 75 MG CAP PO (20:17)
[2024-08-10 20:19] LABS: Procalcitonin 1.55 ng/mL
--- NOTE | 2024-08-10 20:27 | DI.VRAD_ITS ---
PROCEDURE INFORMATION: Exam: XR Chest Exam date and time: 08/10/2024 7:32 PM Age: 74 years old Clinical indication: Other: Cough TECHNIQUE: Imaging protocol: Radiologic exam of the chest. Views: 2 views. COMPARISON: No relevant prior studies available. FINDINGS: Lungs: Hyperexpanded lung yang consistent with COPD. No consolidation. Pleural spaces: Unremarkable. No pleural effusion. No pneumothorax. Heart/Mediastinum: Unremarkable. No cardiomegaly. Bones/joints: Unremarkable. IMPRESSION: No acute findings. Dictated and Authenticated by: Rosalio Solis MD. Orderin Kevan Lundberg MD
[2024-08-10] MEDS: Ibuprofen 600 MG TAB PO (21:20)
[2024-08-10] MEDS: Ondansetron O.D.T. 4 MG TABEF, 3 TABS/BTL PO (21:21)
== END 2024-08-10 21:37 | disposition home or self-care (01) ==
PROVIDERS: Emergency Provider Emergency Medicine; PCP Family Medicine
DX: J09.X2 Influenza due to identified novel influenza A virus with other respiratory manifestations (principal); R05.1 Acute cough
CPT/HCPCS: 80053; 82805; 84145; 87637; 96361; 96374; 96375; 99284; 71046; 83735; 85025; 99283; J1720; J2405

== ENCOUNTER 2024-09-08 11:37 | Outpatient (CLI) | payer MEDICARE, BC, SELFPAY ==
[2024-09-08 14:43] LABS: ALT 15 U/L (14-59); AST 14 U/L (15-37); Albumin 4.2 g/dL (3.4-5.0); Alkaline Phosphatase 100 U/L (46-116); Anion Gap 5.8 mmol/L (3-11); BUN 20 mg/dL (7-18); Bilirubin, Total 1.4 mg/dL (0.2-1.0); CO2 32.2 mmol/L (21.0-32.0); CREATININE 0.7 mg/dL (0.55-1.02); Calcium 9.6 mg/dL (8.5-10.1); Chloride 102 mmol/L (98-107); Estimated GFR 91.83 (mL/min/1.73m2); Glucose 97 mg/dL (74-106); Potassium 4.1 mmol/L (3.5-5.1); Sodium 140 mmol/L (136-145); TSH (W/Ref FT4) 0.78 uIU/mL (0.36-3.74); Total Protein 7.9 g/dL (6.4-8.2); Vitamin B12 1084 pg/mL (193-986)
== END 2024-09-08 11:38 | disposition home or self-care (01) ==
LOC: LOS 11:37
PROVIDERS: PCP Family Medicine; Visit Provider Family Medicine
DX: E53.8 Deficiency of other specified B group vitamins (principal); I10 Essential (primary) hypertension; E03.9 Hypothyroidism, unspecified
CPT/HCPCS: 36415; 80053; 82607; 84443

== ENCOUNTER 2024-12-17 00:21 | Outpatient (CLI) | payer MEDICARE, BC, SELFPAY ==
--- NOTE | 2024-12-17 07:30 | DI.MAMMO_ITS ---
Exam(s) MAMMO SCREENING EXAM: MAMMO SCREENING CLINICAL HISTORY: screening,Z12.39 TECHNIQUE: Mammograms were interpreted according to the usual protocol including computer analysis with CAD system, tomosynthesis and C-view imaging. COMPARISON: 2015 through 2023 FINDINGS: The breasts are composed of heterogeneously dense fibroglandular densities, Breast Density category C. No suspicious masses or suspicious microcalcifications are seen. No skin thickening or abnormal axillary lymph nodes are seen. There has been no significant change from prior exams. IMPRESSION: BI-RADS Category 1, Negative mammogram. Yearly screening mammography is recommended. Breast Density: Category C - The breasts are heterogeneously dense, which may obscure small masses. Breast density Category C or D implies that the patient has dense breast tissue. Dense breast tissue can make it harder to find cancer on a mammogram. Dense breast tissue is also associated with an increased risk of breast cancer. This information about the result of the mammogram report was provided to the patient to raise their awareness. Use this report when you speak with the patient about their risks for breast cancer, which includes their family history. At that time, you may recommend additional screening tests (Ultrasound or MRI) as these tests may add significant information. A negative radiographic report should not delay biopsy if a dominant or clinically suspicious mass is present. Up to ten percent of cancers are not identified on mammography. A negative report may reinforce clinical impression. Adenosis and dense breasts may obscure an underlying neoplasm. False positive reports average 6 to 10%.
== END 2024-12-17 00:41 ==
PROVIDERS: PCP Family Medicine; Visit Provider Family Medicine
DX: Z12.31 Encounter for screening mammogram for malignant neoplasm of breast (principal); R92.333 Mammographic heterogeneous density, bilateral breasts
CPT/HCPCS: 77063; 77067